=== PATIENT | female | born 1975 | race Caucasian/White ===

== ENCOUNTER 2022-03-02 07:12 | Day surgery (SDC) | payer BC, SELFPAY ==
--- NOTE | 2022-02-21 08:06 | PCM.HP.BLA ---
History and Physical Date of Admission: 03/02/22 Pre-Op History and Physical ? HPI: The patient is a 46 year old female presenting for discussion regarding surgical management for abnormal uterine bleeding, desires sterilization, endometrial polyp on endometrial biopsy. ? Pre-operative visit. She is scheduled for Hysteroscopy D&C and polypectomy with Diamond endometrial ablation and laparoscopic bilateral salpingectomy , for AUB, EM polyp, desires sterilization on 03/02/22. Procedure discussed along with risks, benefits and complications. Other alternatives discussed for management. Consent form signed? Yes. ? ? PAST MEDICAL HISTORY No past medical history on file. ? ? PAST SURGICAL HISTORY PAST SURGICAL HISTORY Procedure Laterality Date ? NONE ? CURRENT MEDICATIONS Current Outpatient Medications Medication Sig Dispense Refill ? levocetirizine dihydrochloride (XYZAL ORAL) Take by mouth. ? ? ? multivit with calcium,iron,min (WOMEN'S DAILY MULTIVITAMIN ORAL) Take by mouth. ? ? ? calcium carbonate/vitamin D3 (CALCIUM 500 + D ORAL) Take by mouth. ? ? ? magnesium carb,citrate,oxide (MAGNESIUM COMPLEX ORAL) Take by mouth. ? ? ? polyethylene glycol 3350 (MIRALAX, GLYCOLAX) 17 gram/dose powder Use as directed for Miralax / Gatorade Bowel Prep Kit 238 g 0 ? Gatorade Sports Drink Use as directed for Miralax / Gatorade Bowel Prep Kit ? ? ? Bisacodyl (DULCOLAX) 5 mg tab Use as directed for Miralax / Gatorade Bowel Prep Kit 4 tablet 0 ? No current facility-administered medications for this visit. ? ? ALLERGIES: Patient has no known allergies. ? PERSONAL HISTORY: SOCIAL HISTORY Social History ? Tobacco Use ? Smoking status: Never Smoker ? Smokeless tobacco: Never Used Substance Use Topics ? Alcohol use: Never ? Drug use: Never ? FAMILY HISTORY: FAMILY HISTORY FAMILY HISTORY Problem Relation Age of Onset ? Uterine Fibroids Mother ? ? Breast Cancer Paternal Aunt ? ? ? REVIEW OF SYMPTOMS: Negative PHYSICAL EXAMINATION: ? VITALS: Blood pressure 116/70, weight 197 lb (89.4 kg), last menstrual period 02/10/2022. ? GENERAL: The patient is well nourished, well hydrated in no acute distress. , The patient is oriented to time, place, and person. NECK: full range of motion LUNGS: Clear to auscultation bilaterally. no wheezes, rhonchi or rales HEART: Regular rate and rhythm, Normal heart sounds and No murmurs or gallops NEURO: A&O x 3 ? IMPRESSION: AUB, EM polyp, Desires sterilization ? PLAN: Hysteroscopy, D&C, polypectomy, Diamond ablation, bilateral salpingectomy ? Pt has been counseled on risks/benefits and alternatives of surgery including but not limited to anesthesia, bleeding, infection, injury to pelvic structures including bowel, bladder, ureters and vessels. Pt wishes to proceed with surgery at this time. Pre and post op instructions reviewed ? I have reviewed and updated past medical and surgical history, medications and allergies Amina Flores MD Office Visit on 02/13/2022 Office Visit on 02/13/2022 Note shared with patient
[2022-03-02 08:14] VITALS: BP 135/80; PULSE 73; RESP 16; TEMP 36.9; O2SAT 99; BMI 33.3
[2022-03-02 08:24] LABS: Hematocrit 38.8 % (37-47); Hemoglobin 12.9 g/dL (12.0-15.0); Mean Corp Hgb Conc 33.2 g/dL (32-36); Mean Corpuscular Volume 87.2 fL (81-99); Mean Platelet Vol. 8.7 fl (6.2-12.0); Platelet Count 334 K/mm3 (150-450); RBC Distribution Width CV 13.1 % (11.6-14.6); RBC Distribution Width SD 41.1 fl (35.1-43.9); Red Blood Count 4.45 M/mm3 (4.2-5.4); White Blood Count 8.8 K/mm3 (4.4-11.0)
[2022-03-02] MEDS: Lactated Ringers 1,000 ML 15 ML IV ×2 (08:25→09:49)
--- NOTE | 2022-03-02 08:27 | EX.PCM.DISCH ---
Discharge Instructions Procedure Other Diet Discharge Diet: No restrictions Activity May resume sexual activity in: 2 weeks Lifting Restrictions: 20-25 lbs Dressing / Incision Call your doctor if your incision/area has: Continuous Slow Oozing, Sudden Increased Bleeding, Increased Pain/ Swelling, Increased Redness, Foul Smelling Discharge and Swelling at the incision site Call your doctor if you observe: Fever of 101 or Higher, Inability to urinate, Inability to have a bowel movement, Using more than 1 pad per hour and Uncontrolled pain Additional Dressing/Incision Instructions:: You have skin glue over your incision sites, do not pick off. You may shower and let the soap and water run over the incision sites and dab dry. Follow Up Care Please Follow Up With: Amina Aburto MD When: 1-2 weeks post OP if you need an appointment please call [phone] Test Results: Test results from this visit will be discussed in further detail at your follow-up appointment, if applicable. Discharge Plan Admission Attending Provider: Amina Aburto Primary Care Provider: Jaquelin Alas Discharge Orders/Prescriptions Prescriptions: No Action multivitamin Tablet 1 tab PO DAILY RF: 0 Citracal 500 mg Tablet, Effervescent 1,000 mg PO DAILY RF: 0 magnesium 250 mg Tablet 250 mg PO DAILY RF: 0 Apple Cider Vinegar Complex 300-8.3 mg Tablet PO DAILY RF: 0 levocetirizine [Xyzal] 5 mg Tablet 5 mg PO DAILY PRN (Reason: seasonal allergies) RF: 0 Referrals / Follow Up: Jaquelin Alas MD [Primary Care Provider] - Disposition Disposition (needs filled in before D/C Order can be placed): Home, Self Care
--- NOTE | 2022-03-02 08:30 | PCM.OPRPT ---
Problems Associated Problem List Diagnoses (1) Abnormal uterine bleeding (AUB): (2) Endometrial polyp: (3) Encounter for sterilization: Report of Operation Date of Procedure: 03/02/22 Pre-Operative Diagnosis: aub, endometrial polyp, desires sterilization Post-Operative Diagnosis: AUB, desires sterilization Surgery/Procedure Performed:: hysteroscopy, Diamond ablation, Laparoscopic bilateral salpingectomy Description of Surgical Findings:: both tubal ostia visualized. No endometrial polyp noted. fluid deficet 50cc Surgeon: Amina Aburto Type of Anesthesia: General and Local Special Medications: 0.75 marcaine Specimen's removed: bilateral fallopian tubes Drains: none Estimated Blood Loss (mL): <5cc Fluids Replaced: 1000 Description of Procedure: After informed consent was obtained patient taken to the operating room she is placed in supine position she is given anesthesia she is prepped draped normal sterile fashion. Bladder was drained prior to the start of the procedure. At this time the weighted speculum was placed the posterior fornix of the vagina then a single-tooth tenaculum was used to grasp the anterior lip of the cervix. At this time the uterus was sounded to approximately 9cm the endocervical canal sounded to 3.5cm. Next cervix was dilated in incremental fashion. Once adequate dilatation was achieved the hysteroscope was inserted using normal saline as distention medium. On hysteroscopy no abnormalities appreciated. Both tubal ostia were visualized. At this time the Diamond device was opened. The Diamond was set at 5.5cm. The device was activated. Prior to activation the field test was performed and cavity was intact. The device was then fired and activated for 120 seconds. Once the 120 seconds was completed the device was removed intact. Uterine manipulator placed. Weighted speculum was removed. attention turned to laparoscopy portion of case. legs were placed in parallel with abdomen. 2 towel clamps were placed at level of umbilicus. Marcaine was injected infraumbilical and a small incision was made. The 5 mm trocar was placed under direct visualization. CO2 gas was used to insufflate the intra-abdominal cavity. Upon inspection no gross abnormalities appreciated- the uterus tubes and ovaries appeared to be normal. At this time then the LLQ and RLQ ports were placed First Marcaine was injected and small incision was made a knife and the 5 mm trocars were placed. At this time then tubes were traced back to the fimbriated ends. Enseal was used to coagulate and ligate along mesosalpinx bilaterally until tubes removed completely. Good hemostasis was appreciated. At this time procedure was deemed complete successful. The gas was desufflated on from the intra-abdominal cavity. The trochars were removed. Skin was closed using 4-0 Monocryl in a subcutaneous fashion. Dermabond glue was placed. Instrument lap and needle counts were correct ?2. The uterine manipulator was removed. Vaginal sweep was performed it was negative. There were no complications anticipated normal postoperative course for this patient. Grafts/Implants Used: none Procedure Start Time: 08:59 Procedure Stop Time: 09:26 Complications none Admit VTE Documentation VTE Present on Admission: Yes VTE Mechan Device Prophylaxis: SCD's VTE Pharm Prophylaxis ordered?: No Reason prophylaxis not ordered:: Procedure Not Indicated
[2022-03-02 08:38] LABS: Internal QC Validated? YES +Cl - CLEAR BKGD; Pregnancy, Urine Negative Negative
--- NOTE | 2022-03-02 08:45 | FALS_PTH ---
PATIENT: DOMENICA MCGUIRE #:[id number] LOC: [facility] [place] U#:[id number] AGE/SX: 46/F ROOM: RE03/02/[address]: Dr. Amina Aburto, MDDOB: 1975 BED: DIS: 03/02/2022 SPEC #: [id number] RECD: 03/02/22 11:32 STATUS: TITO ARAIZA #: [id number] JAGJIT: 03/02/22 08:[address]: Amina Aburto DEPT: SURGICAL PATHOLOGY RECD BY: Delphine Verde ENTERED: 03/02/22 13:41 SP TYPE: FALL TUBES OTHR DR: Dr. Jaquelin Alas MD Tissues: Fallopian tube Procedures: Surgery Specimen Level II Surgery Specimen Level IV HEADER OPERATION: Laparoscopic bilateral salpingectomy, hysteroscopy, Diamond PRE-OP DIAGNOSIS: Abnormal uterine bleeding, possible endometrial polyp, sterilization TISSUE SUBMITTED: Bilateral fallopian tubes MICROSCOPIC DIAGNOSIS Right and left fallopian tubes, bilateral salpingectomies: Benign paratubal cysts. Complete cross sections of two fallopian tubes. AM:sonny 03/05/2022 MICROSCOPIC DESCRIPTION Slides are reviewed. GROSS DESCRIPTION Received in fixative is one container labeled with the patient's name and designated bilateral fallopian tubes. The specimen consists of two fallopian tubes with an average length of 4.5 cm and has an average diameter of 0.6 cm. Both fallopian tubes have normal fimbriated ends. The fimbrial end of one fallopian tube reveals a smooth, glistening cyst containing clear fluid. The cyst measures 1 cm in diameter. No mass lesions are identified. Director Investor Relations sections are submitted in two cassettes as follows: 1 - one fallopian tube, 2 - fallopian tube with cyst. / AM:sonny 03/02/2022 TC:5 CPT: 75482, 20029
[2022-03-02 09:37] VITALS: BP 135/80; BP 144/95; PULSE 84; RESP 16; TEMP 36.6; O2SAT 95
[2022-03-02 09:45] VITALS: BP 135/80; BP 139/84; PULSE 79; RESP 16; O2SAT 97
[2022-03-02 10:00] VITALS: BP 135/80; BP 147/85; PULSE 66; RESP 16; O2SAT 98
[2022-03-02 10:03] VITALS: BP 117/100; BP 135/80; PULSE 64; RESP 16; TEMP 36.4; O2SAT 100
[2022-03-02 10:24] VITALS: BP 110/82; BP 135/80; PULSE 64; RESP 16; O2SAT 97
[2022-03-02] MEDS: HYDROcodone Bitartrate/Apap 5/325 Tablet PO (10:40)
== END 2022-03-02 10:52 | disposition home or self-care (01) ==
LOC: SDC 07:15 → AC 07:17
PROVIDERS: PCP Internal Medicine; Referring Provider Obstetrics & Gynecology; Visit Provider Obstetrics & Gynecology
PROC: (CPT 58661; principal; 2022-03-02 08:35)
DX: Z30.2 Encounter for sterilization (principal); N93.9 Abnormal uterine and vaginal bleeding, unspecified; N83.8 Other noninflammatory disorders of ovary, fallopian tube and broad ligament; F41.9 Anxiety disorder, unspecified; J30.2 Other seasonal allergic rhinitis
CPT/HCPCS: 58563; 58661; 00840; 81025; 85027; 88302; 88305; J7120; C1760; J2405

== ENCOUNTER 2024-06-05 05:25 | Day surgery (SDC) | payer BC, SELFPAY ==
[2024-06-02 07:15] LABS: Hematocrit 40.8 % (37-47); Hemoglobin 13.3 g/dL (12.0-15.0); Mean Corp Hgb Conc 32.6 g/dL (32-36); Mean Corpuscular Hgb 28.9 pg (27.0-32.0); Mean Corpuscular Volume 88.5 fL (81-99); Mean Platelet Vol. 8.7 fl (6.2-12.0); Platelet Count 377 K/mm3 (150-450); RBC Distribution Width CV 13.2 % (11.6-14.6); RBC Distribution Width SD 42.2 fl (35.1-43.9); Red Blood Count 4.61 M/mm3 (4.2-5.4); White Blood Count 10.1 K/mm3 (4.4-11.0)
[2024-06-02 07:40] LABS: Anion Gap 5 (5-15); BUN 13 mg/dL (7-18); BUN/Creat Ratio 15.9 RATIO (10-20); Chloride 109 mmol/L (98-107); Creatinine, Serum 0.82 mg/dL (0.55-1.02); EST Glomerular Filtration Rate 79 mL/min (>60); Est Glom Filt Rate - Afr Amer 96 mL/min (>60); Glucose 106 mg/dL (74-106); Potassium 3.7 mmol/L (3.5-5.1); Sodium Level 140 mmol/L (136-145)
[2024-06-03 08:21] LABS: Magnesium 2.4 mg/dL (1.6-2.6)
--- NOTE | 2024-06-03 11:45 | PCM.HP.BLA ---
History and Physical Date of Admission: 06/05/24 Pre-Op History and Physical HPI: The patient is a 48 year old female presenting for pre-operative visit. She is scheduled for TLH, CYSTO, for dysmenorrhea, adenomyosis AUB on 06/05/24. Procedure discussed along with risks, benefits and complications. Other alternatives discussed for management. Consent form signed? Yes. PAST MEDICAL HISTORY PAST MEDICAL HISTORY No date: Asthma PAST SURGICAL HISTORY PAST SURGICAL HISTORY 03/02/2022: HYSTEROSCOPY ENDOMETRIAL ABLATION Comment: Diamond Ablation at [facility]-Dr. Flores 03/02/2022: SALPINGECTOMY; Bilateral Comment: Laparoscopic B/L Salpingectomy at [facility]-Dr. Flores CURRENT MEDICATIONS Current Outpatient Medications Medication Sig Dispense Refill ? fluticasone (FLONASE) 50 mcg/actuation nasal spray 1 [place] once daily. ? fluticasone-salmeterol (ADVAIR, WIXELA) 250-50 mcg/dose inhaler ? famotidine (PEPCID) 20 mg tablet ? levocetirizine dihydrochloride (XYZAL ORAL) Take by mouth. ? multivit with calcium,iron,min (WOMEN'S DAILY MULTIVITAMIN ORAL) Take by mouth. ? calcium carbonate/vitamin D3 (CALCIUM 500 + D ORAL) Take by mouth. No current facility-administered medications for this visit. ALLERGIES: Patient has no known allergies. PERSONAL HISTORY: SOCIAL HISTORY Social History Tobacco Use ? Smoking status: Never ? Smokeless tobacco: Never Vaping Use ? Vaping Use: Never used Substance Use Topics ? Alcohol use: Never ? Drug use: Never FAMILY HISTORY: FAMILY HISTORY FAMILY HISTORY Problem Relation Age of Onset ? Uterine Fibroids Mother ? Breast Cancer Paternal Aunt REVIEW OF SYMPTOMS: negative except as noted above PHYSICAL EXAMINATION: VITALS: Blood pressure 116/68, weight 93 kg (205 lb), last menstrual period 05/08/2024. GENERAL: The patient is well nourished, well hydrated in no acute distress. , The patient is oriented to time, place, and person. NECK: full range of motion LUNGS: Clear to auscultation bilaterally. no wheezes, rhonchi or rales HEART: Regular rate and rhythm, Normal heart sounds, and No murmurs or gallops IMPRESSION: Dysmenorrhea, Adenomyosis, AUB PLAN: TLH, Cystoscopy Pt has been counseled on risks/benefits and alternatives of surgery including but not limited to anesthesia, bleeding, infection, injury to pelvic structures including bowel, bladder, ureters and vessels. Pt wishes to proceed with surgery at this time. Risk of transfusion reviewed. Pre and post op instructions reviewed I have reviewed and updated past medical and surgical history, medications and allergies Amina Flores MD Office Visit on 05/29/2024 Note shared with patient
[2024-06-05] VITALS (9 sets, daily range): BP systolic 97–141; BP diastolic 52–91; PULSE 58–76; RESP 12–18; TEMP 36.1–36.8; O2SAT 91–99; BMI 35.2
[2024-06-05] MEDS: Lactated Ringers 1,000 ML 40 ML IV (05:59)
[2024-06-05] MEDS: Magnesium 1 GM over 15 mins IV (06:00)
[2024-06-05] MEDS: Enoxaparin 40 MG/0.4 ML Syringe SC (06:01)
[2024-06-05] MEDS: Scopolamine 1mg/72hr Patch 1 PATCH TD (06:02)
[2024-06-05] MEDS: dexAMETHasone 4 MG/ML Vial 8 MG IV (06:03)
[2024-06-05] MEDS: Phenazopyridine 95 MG Tablet 190 MG PO (06:04)
[2024-06-05] MEDS: Celecoxib 200 MG Capsule 400 MG PO (06:05)
[2024-06-05] MEDS: Acetaminophen 500 MG Tablet 1000 MG PO (06:05)
[2024-06-05] MEDS: Gabapentin 600 MG Tablet PO (06:06)
--- NOTE | 2024-06-05 06:58 | PRE.ANES_ITS ---
ASA Classification* ASA Classification ASA Classification: 2 Assessment & Plan Anesthesia* Anesthesia Assessment Anesthesia Assessment: Discussed sedation and/or anesthesia options, risks, benefits, and alternatives with patient/parents/legal guardian/POA. Questions invited. The patient/parents/legal guardian/POA seems to understand and agrees to proceed with anesthesia plan. Reviewed the physical assessment, medical history, allergy history and patient home medications list prior to surgery/procedure/anesthetic and documented any changes. Performed airway and anesthesia risk assessments. Anesthesia Type Anesthesia Type: General (see written pre anesthesia record for full assessment) Anesthesia Focused Assessment* Temperature: 98 F Pulse Rate: 76 Blood Pressure: 141/90 Respiratory Rate: 18 Pulse Ox: 98 Airway Assessment Mouth opens: >3 cm Mallampati Score: II Focused Labs Anesthesia Preop lab: CBC WBC 10.1 K/mm3 (4.4-11.0) 06/02/24 06:49 RBC 4.61 M/mm3 (4.2-5.4) 06/02/24 06:49 Hgb 13.3 g/dL (12.0-15.0) 06/02/24 06:49 Hct 40.8 % (37-47) 06/02/24 06:49 Plt Count 377 K/mm3 (150-450) 06/02/24 06:49 CHEMISTRY Potassium 3.7 mmol/L (3.5-5.1) 06/02/24 06:49 Sodium 140 mmol/L (136-145) 06/02/24 06:49 Magnesium 2.4 mg/dL (1.6-2.6) 06/02/24 06:49 BUN 13 mg/dL (7-18) 06/02/24 06:49 Creatinine 0.82 mg/dL (0.55-1.02) 06/02/24 06:49 Glucose 106 mg/dL (74-106) 06/02/24 06:49 COAG Urine Test Negative Negative 03/02/22 08:15 Pre-Assessment Diagnosis/Proposed Procedure Planned Operative Procedure(s): Hysterectomy,TLH, cystoscopy Anesthesia History Anesthesia History - 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 When Was Last Pacemaker Check QUESTION #4 FULL TEXT: You/Your Family Experience fever (hyperthermia) with Anesthesia Last Oral Intake Last Oral intake: Last Oral Intake NPO since 00:00 06/05/24 06:10 Meds taken in AM with sips of Yes 06/05/24 06:10 water? Meds patient instructed to take am of surgery PONV PONV - superintendent house: PONV - superintendent house Female Yes 06/01/24 08:32 HX of Motion Sickness No 06/01/24 08:32 HX of N/V After Surgery No 06/01/24 08:32 Non-Smoker Yes 06/01/24 08:32 Duration of Surgery greater Yes 06/01/24 08:32 than 60 minutes Number of Risk Factors 3 06/01/24 08:32 PONV Score Moderate Risk 06/01/24 08:32 Height & Weight Height & Weight: Anesthesia: Height & Weight Height 5 ft 4 in 06/05/24 06:10 Weight: 92.986 kg 06/05/24 06:10 Body Mass Index (BMI) 35.2 06/05/24 06:10 Respiratory Assessment Respiratory Assessment - superintendent house: Respiratory Tract Infection Hx - superintendent house Hx Respiratory Tract Infection No 06/01/24 08:32 STOP Sleep Apnea STOP Sleep Apnea - superintendent house: STOP Sleep Apnea - superintendent house Hx Hypertension No 06/01/24 08:32 Hx Sleep Apnea No 06/01/24 08:32 CPAP BIPAP Do you snore loudly (louder No 06/01/24 08:32 than talking or can be heard Do you often feel tired/ No 06/01/24 08:32 fatigued/ sleepy during daytime? Has anyone observed you stop No 06/01/24 08:32 breathing during sleep? STOP Results Negative 06/01/24 08:32 QUESTION #5 FULL TEXT : Do you snore loudly (louder than talking or can be heard through closed doors)? 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 Specify any problems Hx of Preganancy in last 3 No 06/01/24 08:32 Months Nurse Filling Out Transfusion MGRIFFITH 06/01/24 08:32 & Questions: Date: 06/01/24 06/01/24 08:32 Time: 08:34 06/01/24 08:32 Patient unable to answer at this time (ie. confused, unrespo /Reproduction History /Reproductive History - superintendent house: /Reproductive Hx- superintendent house Hx Now No 06/01/24 08:32 Gestational Age (in weeks): EDC: Hx Hx Para Hx Section SAB No 06/01/24 08:32 Active Medications Active Medications: Current Medications Generic Name Dose Route Start Last Admin Trade Name Freq PRN Reason Stop Dose Admin Acetaminophen 1,000 mg 06/05/24 07:30 06/05/24 06:05 Acetaminophen 500 Mg Tablet PO 06/05/24 07:31 1,000 mg PREOP ONE Administration Celecoxib 400 mg 06/05/24 07:30 06/05/24 06:05 Celecoxib 200 Mg Capsule PO 06/05/24 07:31 400 mg X1 ONE Administration Dexamethasone Sodium Phosphate 8 mg 06/05/24 07:30 06/05/24 06:03 Dexamethasone 4 Mg/Ml Vial IV 06/05/24 07:31 8 mg X1 ONE Administration Enoxaparin Sodium 40 mg 06/05/24 07:30 06/05/24 06:01 Enoxaparin 40 Mg/0.4 Ml Syringe SC 06/05/24 07:31 40 mg X1 ONE Administration Gabapentin 600 mg 06/05/24 07:30 06/05/24 06:06 Gabapentin 600 Mg Tablet PO 06/05/24 07:31 600 mg PREOP ONE Administration Lactated Ringer's 1,000 mls @ 40 mls/hr 06/05/24 07:30 06/05/24 05:59 IV 40 mls/hr .Q25H DHARA Administration Cefazolin Sodium 2 gm/ Sodium 110 mls @ 150 mls/hr 06/05/24 07:30 Chloride IV 06/05/24 08:13 PREOP ONE Lactated Ringer's 1,000 mls @ 70 mls/hr 06/05/24 07:30 IV .[id number] DHARA Magnesium Sulfate 1 gm/ 102 mls @ 408 mls/hr 06/05/24 07:30 06/05/24 06:19 Dextrose IV 06/05/24 07:44 Infused X1 ONE Infusion Insulin Human Lispro 0 unit 06/05/24 07:30 Insulin Lispro 100 Unit/Ml Insuln.Pen SC Q4H PRN PRN BG >/= 180, SEE PROTOCOL Protocol Ondansetron HCl 4 mg 06/05/24 07:30 Ondansetron 4 Mg/2 Ml Vial IV 06/05/24 07:31 X1 ONE Phenazopyridine HCl 190 mg 06/05/24 07:30 06/05/24 06:04 Phenazopyridine 95 Mg Tablet PO 06/05/24 07:31 190 mg X1 ONE Administration Scopolamine HBr 1 patch 06/05/24 07:30 06/05/24 06:02 Scopolamine 1mg/72hr Patch TD 06/05/24 07:31 1 patch X1 ONE Administration PFSH Medical History Wears glasses Migraine headache Restless legs Gastric reflux Shortness of breath on exertion Leg cramps History of echocardiogram Seasonal allergies Anxiety Heartburn Non-smoker History of asthma Home Medications ?Medication ?Instructions ?Recorded ?Last Taken ?Type levocetirizine 5 mg tablet (Xyzal) 5 mg PO DAILY PRN seasonal 02/23/22 06/04/24 History allergies multivitamin 1 tab PO DAILY supplement 02/23/22 06/04/24 History albuterol sulfate 90 mcg/actuation 2 puff inhalation Q4H PRN PRN 06/01/24 Unknown History aerosol inhaler shortness of breath or wheezing calcium 600 mg capsule 600 mg PO DAILY 06/01/24 06/04/24 History collagen 3,000 mg PO DAILY 06/01/24 06/04/24 History famotidine 20 mg tablet 20 mg PO BID 06/01/24 06/05/24 History fluticasone 250 mcg-salmeterol 50 1 ea inhalation Q12H 06/01/24 06/05/24 History mcg/dose blistr powdr for inhalation fluticasone propionate 50 1 spray intranasal DAILY PRN nasal 06/01/24 Unknown History mcg/actuation nasal congestion spray,suspension Allergy/AdvReac Type Severity Reaction Status Date / Time No Known Allergies Allergy Verified 06/01/24 08:26 Surgical History History of bilateral salpingectomy Hx of myringotomy Social History Smoking Status: Never smoker Review of Systems (Anesthesia) ROS Narrative System reviewed and no additional complaints, except as documented.
[2024-06-05 07:07] LABS: Bedside Glucose 98 mg/dL (74-106)
[2024-06-05] MEDS: Cefazolin 2 GM in 0.9% Normal Saline (100mL Bag) 100 ML IV (07:30)
--- NOTE | 2024-06-05 07:30 | HYST_PTH ---
PATIENT: DOMENICA MCGUIRE #:[id number] LOC: [facility] – [place] U#:[id number] AGE/SX: 48/F ROOM: RE06/05/[address]: Dr. Amina Aburto, MDDOB: 1975 BED: DIS: 06/05/2024 SPEC #: [id number] RECD: 06/05/24 10:36 STATUS: TITO ARAIZA #: [id number] JAGJIT: 06/05/24 07:[address]: Amina Aburto DEPT: SURGICAL PATHOLOGY RECD BY: Sigifredo Leahy ENTERED: 06/05/24 11:50 SP TYPE: HYSTERECT OTHR DR: MD Dr. Jaquelin House MD Tissues: Uterus, NOS Procedures: Surgery Specimen Level V HEADER OPERATION: Hysterectomy, total laparoscopic hysterectomy PRE-OP DIAGNOSIS: Dysmenorrhea, adenomyosis, abnormal uterine bleeding TISSUE SUBMITTED: Uterus, cervix MICROSCOPIC DIAGNOSIS Uterus and cervix, hysterectomy: Cervix - chronic inflammation. Endometrium - secretory endometrium. Myometrium - adenomyosis. - An intramural leiomyoma (0.5cm in greatest dimension). / 06/08/2024 MICROSCOPIC DESCRIPTION Slides are reviewed. GROSS DESCRIPTION Received in fixative is one container labeled with the patient's name and designated uterus and cervix. The specimen consists of a hysterectomy specimen consisting of uterus and cervix. The uterus with cervix weighs 105 gm and measures 9.0 x 6.0 x 5.0 cm. The serosal surface is srinivasan glistening. The ectocervical mucosa is unremarkable. The external os is circular in contour. The endocervical canal measures 2.6 cm in length and the endocervical mucosa is srinivasan glistening and unremarkable. The triangular endometrial cavity measures 4.5 cm in length and 2.5 cm in width. Focal area of fibrosis noted in the endometrium. The endometrium is srinivasan and measures <0.1 cm in thickness. Sections of the uterine wall reveal a small nodule measuring 0.5cm in greatest dimension. Sections also reveal a few illdefined nodules. Uterine wall measures up to 2.5cm in thickness. Hairspring Inspector sections are submitted in seven cassettes as follows: 1 - anterior cervix, 2 - posterior cervix, 3 & 4 - anterior uterine wall, 5 & 6 - posterior uterine wall and illdefined nodules, 7- well defined nodule, entirely submitted and an illdefined nodule. SJ: 06/05/2024 TC:5 CPT: 37142
--- NOTE | 2024-06-05 07:30 | OP.PCM_ITS ---
Report of Operation Date of Procedure: 06/05/24 Pre-Operative Diagnosis: AUB, Dysmenorrhea, Adenomyosis s/p endometrial ablation Post-Operative Diagnosis: same Surgery/Procedure Performed:: Total laparoscopic hysterectomty, Cystoscopy Description of Surgical Findings:: bowel stuck to posterior abdominal wall and to left ovary, otherwise unremarkable Surgeon: Amina Aburto brake lining curer: Rody Mahmood brake lining curer: Dany Martinez Type of Anesthesia: General and Local Special Medications: 0.5% marcaine Specimen's removed: uterus, cervix Drains: none Estimated Blood Loss (mL): 50 Fluids Replaced: 1800 Description of Procedure: Patient take to OR and prepped and draped in usual sterile fashion in dorsal lithotomy position with her arms tucked in a neurologically safe and neutral position. The uterus sounded to 7.5 cm. The security sales manager uterine manipulator was sutured into place at 3/9:00 position and de anda were placed. Attention was turned to the abdomen. All port sites were infiltrated with 0.5% marcaine before the incisions were made. The anterior abdominal wall was tented up with towel clamps and using a direct entry approach a 5 mm intraumbilical port was placed. Intraperitoneal placement was confirmed with the laparoscope and the pneumoperitoneum was created. The patient was placed in Trendelenburg and 5 mm right and left lower quadrant ports were placed under direct visualization. Air seal rapid insufflator was used. The bowel was swept away. Ovaries appeared normal. The mesosalpinx starting at fimbriated end were grasped, clamped, sealed and transected with the Ligasure. The round ligaments were divided. The anterior peritoneum was dissected down to create the bladder flap with blunt dissection and the LigaSure. The uterine arteries were isolated, clamped, sealed and cut. There is bowel stuck to posterior uterine wall and lower uterine segment- Dr. Martinez called to come in- he came in and dissected the bowel down down, Dr. Mahmood put finger in rectum to make sure no dissection through rectum- please see his dictation for full dictation. At this time we continued with colpotomy. There was minimal back bleeding from the uterus. Straight bites on uterine arteries performed to drop them off the cuff. The delinator was used as guide to create colpotomy using monopolar tip of ligasure. once specimen was removed attention was turned to vaginal portion. The specimen was handed off. The Peritoneum was run to the posterior cuff with 2-0 vicryl. The cuff was closed with interrupted 0-vicryl figure of 8 sutures. Cystoscopy was performed bilateral ureters were visualized with good efflux. bladder was intact. de anda replaced and sponge stick placed in vagina. The pneumoperitoneum was recreated and the cuff and pedicles were hemostatic. Hemoblast was placed over cuff and pedicles. The skin incisions were closed with skin glue and 3-0 monocryl in the LLQ port site. The vaginal sweep was completed by me. Grafts/Implants Used: none Dr. Mahmood assisted with manipulation of tissue, retraction and holding the camera. no residents. Grafts/Implants Used: none Procedure Start Time: 07:48 Procedure Stop Time: 09:52 Complications none Admit VTE Documentation VTE Present on Admission: Yes VTE Mechan Device Prophylaxis: SCD's VTE Pharm Prophylaxis ordered?: Yes
--- NOTE | 2024-06-05 09:53 | PCM.DC ---
Discharge Instructions Diet Discharge Diet: No restrictions Activity Discharge Activity: May Not Drive (while taking narcotics. may drive when pain controlled. ) and May Shower Return to work on:: 07/17/24 May shower in (days): 1 May resume sexual activity in: 6-8 weeks Weight Bearing Status: Full weight bearing Lifting Restrictions: 20 Additional Activity Instructions:: NOTHING IN THE VAGINA x 6-8 weeks. Dressing / Incision Call your doctor if your incision/area has: Continuous Slow Oozing, Sudden Increased Bleeding, Increased Pain/ Swelling, Increased Redness, Foul Smelling Discharge and Swelling at the incision site Call your doctor if you observe: Fever of 101 or Higher, Inability to have a bowel movement, Using more than 1 pad per hour and Uncontrolled pain Change Dressing in: leave in place till F/U (you have skin glue over incision sites- do not pick off) Cleanse incision/area with: Soap & Water, Keep Dressing Clean & Dry and - (you may let soap and water run over incision sites and dab dry. ) Follow Up Care Please Follow Up With: Amina Aburto MD When: 2 weeks as scheduled for post op visit Test Results: Test results from this visit will be discussed in further detail at your follow-up appointment, if applicable. Discharge Plan Admission Attending Provider: Amina Aburto Primary Care Provider: Jaquelin Alas Consulting Providers: Samuel Clemens Instructions Print Language: Polish Discharge Orders/Prescriptions Prescriptions: No Action multivitamin Tablet 1 tab PO DAILY levocetirizine [Xyzal] 5 mg Tablet 5 mg PO DAILY PRN (Reason: seasonal allergies) calcium 600 mg capsule 600 mg PO DAILY fluticasone propion-salmeterol 250-50 mcg/dose blister with device 1 ea inhalation Q12H famotidine 20 mg tablet 20 mg PO BID collagen 3,000 mg PO DAILY albuterol sulfate 90 mcg/actuation HFA aerosol inhaler 2 puff inhalation Q4H PRN PRN (Reason: shortness of breath or wheezing) fluticasone propionate 50 mcg/actuation spray,suspension 1 spray INTRANASAL DAILY PRN (Reason: nasal congestion) Referrals / Follow Up: Jaquelin Alas MD [Primary Care Provider] - Disposition Disposition (needs filled in before D/C Order can be placed): Home, Self Care
[2024-06-05] MEDS: Bupivacaine Mpf 0.5% 30 ML VIAL (09:55)
--- NOTE | 2024-06-05 10:10 | PCM.POST.ANE ---
Anesthesia: Postop Eval I Current Vital Signs Temperature: 98.2 F Pulse Rate: 69 Blood Pressure: 106/61 Respiratory Rate: 16 Pulse Ox: 94 Assessment Airway patent: Yes Spontaneous unlabored respirations: Yes nausea: No Vomiting: No Anesthesia Complication: No Fluid Hydration Crystalloid volume administer (ml): 1,800 Total IV fluid infused: 1,800 Progress Note Anesthesia document: Postop Eval 1 completed: Yes
--- NOTE | 2024-06-05 10:31 | POSTOPAN2_ITS ---
Anesthesia Postop Eval I Sum Postop Eval Completion status Anesthesia document: Postop Eval 1 completed: Yes Anesthesia Postop Eval I Summary Anesthesia Postop Eval I Summary: Anesthesia Postop Eval I: Assessment Summary Airway patent Yes 06/05/24 10:10 SALES COMMUNICATIONS MANAGER.CSIR Spontaneous unlabored Yes 06/05/24 10:10 SALES COMMUNICATIONS MANAGER.CSIR respirations Mental status nausea No 06/05/24 10:10 SALES COMMUNICATIONS MANAGER.CSIR Vomiting No 06/05/24 10:10 SALES COMMUNICATIONS MANAGER.CSIR Anesthesia Postop Eval I: Fluid Summary Crystalloid volume administer 1,800 06/05/24 10:10 SALES COMMUNICATIONS MANAGER.CSIR (ml) Colloids volume administered ( ml) Blood Product volume administered (ml) Total IV fluid infused 1,800 06/05/24 10:10 SALES COMMUNICATIONS MANAGER.CSIR Anesthesia Postop Eval I: Summary Notes Anesthesia Complication No 06/05/24 10:10 SALES COMMUNICATIONS MANAGER.CSIR Anesthesia Complication Comment: Post-operative progress note Anesthesia: Postop Eval II Evaluation Mental status: Awake Pain Level: 0 nausea: No Vomiting: No
--- NOTE | 2024-06-05 10:31 | PCM.POSTANE2 ---
Anesthesia Postop Eval I Sum Postop Eval Completion status Anesthesia document: Postop Eval 1 completed: Yes Anesthesia Postop Eval I Summary Anesthesia Postop Eval I Summary: Anesthesia Postop Eval I: Assessment Summary Airway patent Yes 06/05/24 10:10 ACCOUNT EXECUTIVE METALWORKING.CSIR Spontaneous unlabored Yes 06/05/24 10:10 ACCOUNT EXECUTIVE METALWORKING.CSIR respirations Mental status nausea No 06/05/24 10:10 ACCOUNT EXECUTIVE METALWORKING.CSIR Vomiting No 06/05/24 10:10 ACCOUNT EXECUTIVE METALWORKING.CSIR Anesthesia Postop Eval I: Fluid Summary Crystalloid volume administer 1,800 06/05/24 10:10 ACCOUNT EXECUTIVE METALWORKING.CSIR (ml) Colloids volume administered ( ml) Blood Product volume administered (ml) Total IV fluid infused 1,800 06/05/24 10:10 ACCOUNT EXECUTIVE METALWORKING.CSIR Anesthesia Postop Eval I: Summary Notes Anesthesia Complication No 06/05/24 10:10 ACCOUNT EXECUTIVE METALWORKING.CSIR Anesthesia Complication Comment: Post-operative progress note Anesthesia: Postop Eval II Evaluation Mental status: Awake Pain Level: 0 nausea: No Vomiting: No
[2024-06-05] MEDS: Lactated Ringers @ 70 MLS/HR 70 ML IV (10:54)
== END 2024-06-05 12:45 | disposition home or self-care (01) ==
LOC: SDC 05:29 → AC 05:29
PROVIDERS: Anesthesiology; PCP Internal Medicine; Referring Provider Obstetrics & Gynecology; Visit Provider Obstetrics & Gynecology
PROC: 0UT94ZZ Resection of Uterus, Percutaneous Endoscopic Approach (ICD-10-PCS; CPT 58570; principal; 2024-06-05 07:10)
DX: D25.1 Intramural leiomyoma of uterus (principal); N93.9 Abnormal uterine and vaginal bleeding, unspecified; N94.6 Dysmenorrhea, unspecified; N73.6 Female pelvic peritoneal adhesions (postinfective); N80.03 Adenomyosis of the uterus; N72 Inflammatory disease of cervix uteri
CPT/HCPCS: 58570; 00840; 36415; 80048; 82962; 83735; 85027; 86850; 86900; 86901; 88307; J7120; J2405; J3475